=== PATIENT | male | born 1945 | race Caucasian/White ===

== ENCOUNTER 2021-01-22 06:42 | Day surgery (SDC) | payer OTHER, SELFPAY ==
[2020-12-28 09:24] VITALS: BMI 23.0
[2021-01-22] VITALS (7 sets, daily range): BP systolic 87–138; BP diastolic 59–85; PULSE 59–76; RESP 16; TEMP 35.9–36.3; O2SAT 97–100; BMI 22.5
--- NOTE | 2021-01-22 06:51 | PCM.HP.BLA ---
History and Physical Date of Admission: 01/22/21 Intake Visit Reasons: CSCOPE Chief Complaint: c-scope consult Personnel Interviewer Required: No Is patient in pain?: No Allergies No Known Allergies Allergy (Verified 12/28/20 09:25) Medications alendronate 70 mg tablet 70 mg PO QWEEK 12/28/20 [History Confirmed 12/28/20] amlodipine 10 mg tablet 10 mg PO DAILY 12/28/20 [History Confirmed 12/28/20] famotidine 20 mg tablet 20 mg PO DAILY 12/28/20 [History Confirmed 12/28/20] FOR[facility]LY [facility] Medical History (Updated 12/28/20 @ 09:[address] Jamin Gillis MD) Acid reflux Anxiety Arthritis Hemorrhoids History of back problems Hypertension Surgical History (Updated 12/28/20 @ 09:22 by Arielle Oakley) S/P bilateral inguinal hernia repair Family History (Updated 12/28/20 @ 09:23 by Arielle Oakley) Mother Heart disease Brother Cancer prostate Father CVA (cerebral vascular accident) Social History (Updated 12/28/20 @ 09:23 by Arielle Oakley) Smoking Status: Former smoker alcohol intake: never HPI HPI HPI: JAMIN NOLAN, is a 75 M who presents to the office today for surgical consultation regarding a screening colonoscopy. The patient is referred by the [facility] and a written copy of my surgical consult and recommendations will return to them. I have a report dated September 12, 2010 where a colonoscopy was performed for him demonstrating multiple diverticula in the sigmoid and descending colon. Some external hemorrhoids. Otherwise the exam was felt to be normal and repeat at 10 years was recommended. He has not had any personal complaints. No bright red blood per rectum or melena. 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 He does not recall having COVID-19. He is not in favor of the vaccination. ROS General General: No weight change, appetite, fatigue, colon cancer, breast cancer or weakness HEENT HEENT: No difficulty swallowing, eye injury, eye surgery, swollen glands or hoarseness Endo Endocrine: No thyroid disease, diabetes mellitus, thyroid cancer, Hair loss, heat intolerance or cold intolerance Skin Skin: No rash or changing moles Breast Breast: No left breast lump, right breast lump, nipple discharge, breast pain, abnormal mammogram, abnormal US or breast enlargement Musc Musculoskeletal: Yes back problems and arthritis; No rheumatoid arthritis, gout or joint pain Cardio Cardiovascular: Yes high blood pressure; No murmur, pacemaker, heart disease, atrial fibrillation, heart attack, heart stent, palpitations, shortness of breat with exertion or chest pain Psych Psychiatric: Yes anxiety; No depression or hearing voices Resp Respiratory: No shortness of breath, No sleep apnea, No cough, No COPD, No asthma, No emphysema and No wheezing Gastro Gastrointestinal: No abdominal pain, No nausea or vomiting, No diarrhea, No constipation, No blood in stool, Yes acid reflux, Yes hemorrhoids, No ulcers, No gallbladder problem and No black,tarry stools [place] Hematologic: No blood thinners, No blood disorders, No bleeding, No anemia and No blood clots Neuro Neurologic: No system reviewed and no additional complaints, except as documented, No as per HPI, No abnormal gait, No abnormal hearing, No abnormal movements, No abnormal speech, No behavioral changes, No burning sensations, No confusion, No convulsions, No disequilibrium, No dizziness, No localized weakness, No frequent falls, No headache(s), No lack of coordination, No loss of vision, No memory loss, No numbness, No other visual disturbances, No radicular pain, No restless legs, No sensory deficit, No syncope, No tingling, No tremor(s), No weakness and No other Exam Const General: cooperative, healthy appearing and comfortable HENCO Head: normal to inspection Chest Other: Increased AP diameter Resp Effort & Inspection: normal respiratory effort Auscultation: clear to auscultation bilaterally Cardio Rate: regular rate Rhythm: regular rhythm GI Palpation: soft Auscultation: normal bowel sounds Skin General: no rashes or lesions noted Neuro Cognition: normal cognition Extrem General: no calf tenderness Psych Thought Content: normal COVID (Procedure Consent) Procedure Criteria Procedure Criteria: Yes Elective The surgeon/proceduralist and patient have discussed in detail the risk of exposure to and/or potential harm posed by the COVID-19 virus with having a surgery/procedure at this time versus the risk of delaying the surgery/procedure. It is not possible to know either the risk of delaying the surgery or procedure or chance of getting an infection with perfect accuracy, but a joint decision was made between the patient and the surgeon/proceduralist to proceed at this time with the scheduled surgery/procedure as indicated on the consent form. Assessment and Plan Assessment and Plan (1) Screening for intestinal cancer: Status: Acute Plan - Dr. Jamin Gillis MD: I recommended the patient a screening colonoscopy with possible biopsy or polypectomy as indicated. He is aware of the technique, benefit, risk and alternatives. He has had an opportunity to ask and have questions answered. His previous colonoscopy was in August 2010. Copy: [facility] Jamin Gillis M.D., F.A.C.S. Coding Level of Care Code 36814 Diagnoses Screening for intestinal cancer Z12.1 I have re-examined the patient. There are no clinical changes since date of exam. Jamin Gillis M.D., F.A.C.S.
[2021-01-22] MEDS: Lactated Ringers 1,000 ML 100 ML IV (06:55)
--- NOTE | 2021-01-22 13:11 | OP.CCLET_ITS ---
01/22/2021 [facility] Re : Colonoscopy procedure for [facility] This procedure was performed on Friday, January 22, 2021. My impressions and recommendations are as follows: Impressions : - Non-thrombosed internal hemorrhoids and internal hemorrhoids that prolapse with straining, but spontaneously regress to the resting position (Grade II) found on perianal exam. - Enlarged prostate found on digital rectal exam. - Diverticulosis in the sigmoid colon. - The examination was otherwise normal. - No specimens collected. Recommendations : - Discharge patient to home. - Resume previous diet. - Continue present medications. - Repeat colonoscopy in 10 years for screening purposes. My findings are described in the full procedure note, which is enclosed. If I can be of further assistance, please feel free to contact me at Doctor phone number(s): Work: . Sincerely, Jamin Gillis MD 01/22/2021 8:31:10 AM This report has been signed electronically.
--- NOTE | 2021-01-22 13:11 | OP.COLON_ITS ---
Patient Name: Jamin Parra Procedure Date: 01/22/2021 8:00 AM Date of : 1945 Age: 75 Procedure: Colonoscopy Indications: Screening for colorectal malignant neoplasm Providers: Jamin Gillis MD Referring MD: [facility] Medicines: See the Anesthesia note for documentation of the administered medications Patient Profile: Last Colonoscopy: August 2010. Last Colonoscopy: August 2010. Complications: No immediate complications. Procedure: Pre-Anesthesia Assessment: - Prior to the procedure, a History and Physical was performed, and patient medications and allergies were reviewed. The patient's tolerance of previous anesthesia was also reviewed. The risks and benefits of the procedure and the sedation options and risks were discussed with the patient. All questions were answered, and informed consent was obtained. Prior Anticoagulants: The patient has taken no previous anticoagulant or antiplatelet agents. ASA Grade Assessment: II - A patient with mild systemic disease. After reviewing the risks and benefits, the patient was deemed in satisfactory condition to undergo the procedure. After I obtained informed consent, the scope was passed under direct vision. Throughout the procedure, the patient's blood pressure, pulse, and oxygen saturations were monitored continuously. The Colonoscope was introduced through the anus and advanced to the cecum, identified by appendiceal orifice and ileocecal valve. The colonoscopy was performed without difficulty. The patient tolerated the procedure well. The quality of the bowel preparation was good. The ileocecal valve and the appendiceal orifice were photographed. Scope In: 8:11:12 AM Scope Withdrawal Time 0 hours 6 minutes 36 seconds Scope Out: 8:25:31 AM Total Procedure Duration Time 0 hours 14 minutes 19 seconds Findings: The perianal exam findings include non-thrombosed internal hemorrhoids and internal hemorrhoids that prolapse with straining, but spontaneously regress to the resting position (Grade II). The digital rectal exam findings include enlarged prostate. Scattered diverticula were found in the sigmoid colon. The exam was otherwise without abnormality. Impression: - Non-thrombosed internal hemorrhoids and internal hemorrhoids that prolapse with straining, but spontaneously regress to the resting position (Grade II) found on perianal exam. - Enlarged prostate found on digital rectal exam. - Diverticulosis in the sigmoid colon. - The examination was otherwise normal. - No specimens collected. Recommendation: - Discharge patient to home. - Resume previous diet. - Continue present medications. - Repeat colonoscopy in 10 years for screening purposes. Procedure Code(s): --- Professional --- 48348, Colonoscopy, flexible; diagnostic, including collection of specimen(s) by brushing or washing, when performed (separate procedure) Diagnosis Code(s): --- Professional --- Z12.11, Encounter for screening for malignant neoplasm of colon K64.1, Second degree hemorrhoids K57.30, Diverticulosis of large intestine without perforation or abscess without bleeding N40.0, Benign prostatic hyperplasia without lower urinary tract symptoms CPT copyright 2017 [employer]. All rights reserved. The codes documented in this report are preliminary and upon burlap roll coverer review may be revised to meet current compliance requirements. Jamin Gillis MD 01/22/2021 8:31:10 AM This report has been signed electronically. Number of Addenda: 0 Note Initiated On: 01/22/2021 8:00 AM
== END 2021-01-22 09:30 ==
LOC: EN 06:43 → AC 06:43
PROVIDERS: Visit Provider Surgery
PROC: 0DJD8ZZ Inspection of Lower Intestinal Tract, Via Natural or Artificial Opening Endoscopic (ICD-10-PCS; CPT 45378; principal; 2021-01-22 07:55)
DX: Z12.11 Encounter for screening for malignant neoplasm of colon (principal); K64.1 Second degree hemorrhoids; K57.30 Diverticulosis of large intestine without perforation or abscess without bleeding; N40.0 Benign prostatic hyperplasia without lower urinary tract symptoms; K21.9 Gastro-esophageal reflux disease without esophagitis; F41.9 Anxiety disorder, unspecified; M19.90 Unspecified osteoarthritis, unspecified site; I10 Essential (primary) hypertension; Z87.891 Personal history of nicotine dependence; Z79.899 Other long term (current) drug therapy
CPT/HCPCS: 45378; 87426; C9803; J7120; J2405

== ENCOUNTER → 2023-03-10 | Outpatient (CLI) | payer OTHER, SELFPAY ==
--- NOTE | 2023-03-10 09:25 | BD_ITS ---
STUDY: DUAL ENERGY X-RAY ABSORPTIOMETRY / DXA REASON FOR EXAM: Male, 77 years old. M810 TECHNIQUE: Bone Mineral Density (BMD) measurements of lumbar spine and left hip were obtained. COMPARISON: None. FINDINGS: Lumbar Spine (L1-L4): g/cm2 (0.887) / T-score (-1.5) / Z-score (-0.5) Findings are suggestive of osteopenia with a low fracture risk. Left Femur Total: g/cm2 (0.755) / T-score (-1.8) / Z-score (-1.0) Left Femoral Neck: g/cm2 (0.535) / T-score (-2.9) / Z-score (-1.5) BD/Dexa Bone Density Study IMPRESSION: The patient is considered osteoporotic as outlined below according to World [employer] Organization (WHO) criteria with a high fracture risk. Reference Information: The T-score is the number of standard deviations above or below the standard which is normal for young adults at their peak bone mineral density. The World Health Organization (WHO) interprets the T-scores as follows: Above -1 Normal bone density Between -1 and -2.5 Osteopenia Equal to / or below -2.5 Osteoporosis As a practical clinical guideline, osteopenia may be graded as follows: Mild -1 through -1.5 Moderate -1.6 through -2.0 Severe -2.1 through -2.4 The Z-score is the number of standard deviations above or below age-matched controls. A Z-score of less than -1.5 would be considered abnormal. References: 1. NIH Osteoporosis and Related Bone Diseases www osteo.org 2. International Society for Clinical Densitometry www iscd.org 3. National Osteoporosis Foundation www nof.org Electronically Signed: Jaime Stark MD at 12:24 EDT ,
== END | disposition home or self-care (01) ==
LOC: OPBD 09:18
PROVIDERS: Referring Provider Nurse Practitioner Family; Visit Provider Nurse Practitioner Family
DX: M81.0 Age-related osteoporosis without current pathological fracture (principal)
CPT/HCPCS: 77080